=== PATIENT | female | born 1965 | race Caucasian/White ===

== ENCOUNTER 2019-04-03 07:28 | Day surgery (SDC) | payer BC ==
[~2019-04-03] VITALS: Ht 152.4 cm; Wt 63.7 kg
[~2019-04-03 07:28] MED LIST: LEVOTHYROXINE PO
[2019-04-03 08:08] VITALS: Ht 152.4 cm; Wt 63.7 kg
[2019-04-03 08:54] VITALS: BP 141/75; PULSE 70; RESP 20
[2019-04-03] MEDS ORDERED: FENTAnyl 50 MCG/ML VIAL ONE ×2 (09:50→09:51)
[2019-04-03] MEDS ORDERED: MIDAZOLAM 1 MG/ML 2 ML INJ ONE ×3 (09:50→10:20)
[2019-04-03 10:03] VITALS: BP 114/68; PULSE 61; RESP 14
== END 2019-04-03 15:06 | disposition home or self-care (01) ==
LOC: GIL 07:28
PROVIDERS: ATTEND Internal Medicine Gastroenterology
DX: K64.8 Other hemorrhoids (principal); K64.4 Residual hemorrhoidal skin tags; K29.50 Unspecified chronic gastritis without bleeding; E03.9 Hypothyroidism, unspecified
CPT/HCPCS: 43239; 45378; 88305; 88312; J2250; J3010